=== PATIENT | male | born 1980 | race Caucasian/White ===

== ENCOUNTER 2016-09-10 12:44 | Emergency (ER) | payer SELFPAY ==
[~2016-09-10] VITALS: Ht 170.2 cm; Wt 100.0 kg
[2016-09-10 12:46] VITALS: BP 160/83; PULSE 82; TEMP 98.4; O2SAT 97
--- NOTE | 2016-09-10 12:53 | PD ---
Physical Exam Date Seen by Provider: September 10, 2016 Time Seen by Provider: 12:51 Narrative 36 YOHM C/O R HAND INJURY LAST NIGHT. CLOSED IN A HOUSE DOOR . PAIN MILD.. NO NUMBNESS VVS WAITING FOR BED PLACEMENT Data Data Last Documented VS Vital Signs Date Time Temp Pulse Resp B/P Pulse Ox O2 Delivery O2 Flow Rate FiO2 09/10/16 12:46 98.4 82 160/83 97 MDM Medical Record Reviewed: Yes Supervised Visit with JESUS: No Scripts No Active Prescriptions or Reported Meds Zhou Magaña September 10, 2016 12:53
--- NOTE | 2016-09-10 13:00 | PD ---
HPI . right hand pain Chief Complaint: Injury Time Seen by Provider: 13:00 Travel History International Travel<30 days: No Contact w/Intl Traveler<30days: No Traveled to known affect area: No History of Present Illness HPI 36-year-old male here with complaints of right hand pain status post slamming a door on his hand. Upon inspection mechanism of injury does not match findings and I discuss with the patient. He then admits to punching a door yesterday. Patient says he was intoxicated and punched a door because it would not open. His significant other is present and is stating that the door was locked, therefore would not open. He is now complaining of pain in the fourth and fifth metacarpals of the right hand. He has decreased strength secondary pain. Pain is mild to moderate. He denies any numbness or tingling. PFSH Past Medical History Cardiovascular Problems: Yes (A-fib) Social History Alcohol Use: No Tobacco Use: Yes (04/26 PPD) Substance Use: No Allergies-Medications (Allergen,Severity, Reaction): Coded Allergies: No Known Allergies (Unverified , 09/10/16) Reported Meds & Prescriptions Reported Meds & Active Scripts Active [place] (Hydrocodone-Acetaminophen) 5-325 mg Tab 1 Tab PO Q6H PRN Reported Zoloft (Sertraline HCl) 50 Mg Tab 50 Mg PO DAILY Review of Systems General / Constitutional: No: Fever Eyes: No: Visual changes HENT: No: Headaches Cardiovascular: No: Chest Pain or Discomfort Respiratory: No: Shortness of Breath Gastrointestinal: No: Abdominal Pain Genitourinary: No: Dysuria Musculoskeletal: Positive: Pain (right hand pain ) Skin: No Rash Neurologic: No: Weakness Psychiatric: No: Depression Endocrine: No: Polydipsia Hematologic/Lymphatic: No: Easy Bruising Physical Exam Narrative GENERAL: AAO x 3, no acute distress, Well-nourished, well-developed patient. SKIN: Warm and dry. No visible rashes or bruising. Positive right hand edema on the fourth and fifth metacarpals. HEAD: Normocephalic and atraumatic. EYES: No scleral icterus. No injection or drainage. EOM intact, PERRLA ENT: No nasal drainage noted. Mucous membranes pink. Airway patent. NECK: Supple, trachea midline. No JVD. CARDIOVASCULAR: Regular rate and rhythm without murmurs, gallops, or rubs. RESPIRATORY: Breath sounds equal bilaterally. No accessory muscle use. No rhonchi or rales. GASTROINTESTINAL: Abdomen soft, non-tender, nondistended. EXTREMITIES: No cyanosis or edema. Tenderness over the fourth and fifth metacarpals of the right hand, edema present. 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 Decreased range of motion secondary pain. BACK: Nontender without obvious deformity. No CVA tenderness. PSYCH: AAO x 3, normal affect. Data Data Last Documented VS Vital Signs Date Time Temp Pulse Resp B/P Pulse Ox O2 Delivery O2 Flow Rate FiO2 09/10/16 13:01 Room Air 09/10/16 12:46 98.4 82 160/83 97 Orders Hand, Complete ([id number]) (09/10/16 12:53) Ice/Cold Pack (09/10/16 12:53) Splinting (09/10/16 ) Fiberglass Splint Forearm Adul (09/10/16 ) MDM Medical Decision Making Medical Screen Exam Complete: Yes Emergency Medical Condition: Yes Medical Record Reviewed: Yes Differential Diagnosis Boxer's fracture, less likely bone contusion, less likely hand abrasion Narrative Course 36 yr old male s/p punching a door here with c/o right hand pain. This is his dominant hand. Xray ordered and reveals: distal 5th metacarpal fracture with minimal angulation ulnar gutter splint discussed with patient that he will need to see hand specialist especially since this is his dominant hand he does not have insurance, but his significant other is currently in the exam room adding him to her insurance policy I explained that not following up could lead to loss of function and this is his dominant hand. I have provided him with some [employer]. Patient verbalized understanding of instructions, questions were answered, and thanked me for their care. I advised them if their condition worsens, please return to the nearest emergency room for further care. Diagnosis Primary Impression: Closed fracture of 5th metacarpal Qualified Code: S62.306A - Closed nondisplaced fracture of fifth metacarpal bone of right hand, unspecified portion of metacarpal, initial encounter Referrals: Hand Surgeon Patient Instructions: General Instructions Additional Instructions: Rest the affected area as much as possible. Keep in the splint. If any swelling develops, please go to the nearest emergency department. Elevate this area. Use ibuprofen as needed for pain and inflammation. Please return to emergency department if your symptoms return or worsen. Follow up with your primary care provider. Take medications as prescribed. YOU WILL NEED TO SEE A HAND SPECIALIST WE DISCUSSED, PLEASE DO SO WITHIN ONE WEEK Med/Other Pt SpecificInfo: Prescription(s) given Scripts Hydrocodone-Acetaminophen ([place])5-325 mg Tab1 Tab PO Q6H PRN (PAIN) #10 TAB Ref 0 Prov:Duke Spear MD 09/10/16 Disposition: 01 DISCHARGE HOME Condition: Stable Sydnie Rasmussen September 10, 2016 13:00
[2016-09-10] MEDS ORDERED: ZOLO50TA PO (13:05)
--- NOTE | 2016-09-10 13:37 | RADRPT ---
EXAM DATE/TIME: 09/10/2016 13:16 [facility] COMPARISON: No previous studies available for comparison. INDICATIONS : Right hand pain, mostly in 5th digit area, shoved front door yesterday. MEDICAL HISTORY : None. SURGICAL HISTORY : None. ENCOUNTER: Initial ACUITY: 1 day PAIN SCORE: 10/10 LOCATION: Right hand FINDINGS: There is fracture head of the fifth metacarpal with minimal angulation. No other fractures are appre ciated. CONCLUSION: Fracture distal fifth metacarpal minimal angulation. Vladislav Barrera MD FACR on September 10, 2016 at 13:34 Board Certified Radiologist. This report was verified electronically.
[2016-09-10] MEDS ORDERED: NORC5TAB PO (13:46)
== END 2016-09-10 14:39 | disposition home or self-care (01) ==
LOC: NEPK 12:44
DX: S62.306A Unspecified fracture of fifth metacarpal bone, right hand, initial encounter for closed fracture (principal); I48.91 Unspecified atrial fibrillation; F17.210 Nicotine dependence, cigarettes, uncomplicated; W22.8XXA Striking against or struck by other objects, initial encounter; Y92.009 Unspecified place in unspecified non-institutional (private) residence as the place of occurrence of the external cause
CPT/HCPCS: 29515; 73130

== ENCOUNTER 2016-09-22 12:56 | Emergency (ER) | payer OTHER ==
[~2016-09-22] VITALS: Ht 172.7 cm; Wt 96.0 kg
[~2016-09-22 12:56] MED LIST: NORC5TAB PO; ZOLO50TA PO
[2016-09-22 12:58] VITALS: BP 187/93; PULSE 104; RESP 24; TEMP 97.8; O2SAT 96
--- NOTE | 2016-09-22 13:13 | PD ---
HPI Chief Complaint: Laceration/Skin Injury Time Seen by Provider: 13:13 Travel History International Travel<30 days: No Contact w/Intl Traveler<30days: No Traveled to known affect area: No History of Present Illness HPI 36-year-old male presents to the emergency department for evaluation of left hand thumb laceration. Patient states that he was at work cutting sheet metal when the blade accidentally jerked the piece of metal and cut his left thumb on the metal. He complains of pain at the site and states he thinks there is a piece of metal in the laceration. He denies any numbness or tingling, weakness , decreased range of motion. Unsure of last tetanus vaccination. Patient is also requesting his splint be replaced on his right hand, he was here in our ED about 2 weeks ago for a right hand fracture. No other complaints. PFSH Past Medical History Atrial Fibrillation: Yes Depression: Yes Cardiovascular Problems: Yes (A-FIB) Diminished Hearing: No Psychiatric: Yes (PTSD) Immunizations Current: No Social History Alcohol Use: Yes (OCC) Tobacco Use: Yes (1/2 PPD) Substance Use: No (DENIES) Allergies-Medications (Allergen,Severity, Reaction): Coded Allergies: No Known Allergies (Unverified , 09/17/16) Reported Meds & Prescriptions Reported Meds & Active Scripts Active [place] (Hydrocodone-Acetaminophen) 5-325 mg Tab 1 Tab PO Q6H PRN Reported Zoloft (Sertraline HCl) 50 Mg Tab 50 Mg PO DAILY Review of Systems Except as stated in HPI: all other systems reviewed are Neg Physical Exam Narrative GENERAL: Well-nourished and well-developed pleasant female patient in no acute distress who is nontoxic appearing. SKIN: Warm and dry. 1 cm laceration to volar proximal aspect of the thumb. There does appear to be a small metallic foreign body within the laceration. No tendon injury. HEAD: Normocephalic and atraumatic. EYES: No injection, drainage, or hyphema noted. PERRLA. EOMI. ENT: No nasal drainage noted. Oropharynx is clear. NECK: Supple and the trachea is midline. CARDIOVASCULAR: Regular rate and rhythm. RESPIRATORY: Breath sounds are equal bilaterally with no accessory muscle use, wheezing, rhonchi, or crackles. EXTREMITY: Left hand laceration as above. Full range of motion in all joints. No joint swelling/injury. Normal opposition of thumb. Distal extremity neurovascularly intact with intact two point discrimination. NEUROLOGICAL: Awake, alert, and oriented. Normal speech and gait. Cranial nerves are grossly intact. Data Data Last Documented VS Vital Signs Date Time Temp Pulse Resp B/P Pulse Ox O2 Delivery O2 Flow Rate FiO2 09/22/16 12:58 97.8 104 24 187/93 96 Room Air Orders Tetanus/Diphtheria Tox Adult (Tetanus/Di (09/22/16 13:15) Bupivacaine Pf 0.5% Inj (Marcaine Pf 0.5 (09/22/16 13:15) Lidocaine 1% Inj (50 Ml) (Xylocaine 1% I (09/22/16 13:15) Hand, Complete ([id number]) (09/22/16 13:12) Splint Or Brace Apply/Monitor (09/22/16 13:16) Fiberglass Splint Forearm Adul (09/22/16 ) [facility] Medical Decision Making Medical Screen Exam Complete: Yes Emergency Medical Condition: Yes Differential Diagnosis Foreign body retention versus laceration versus deep versus avulsion Narrative Course 36-year-old male presents to the emergency department for evaluation of laceration to left hand thumb with possible retained foreign body. Patient is afebrile, vital signs are stable. No evidence of tendon or neurovascular injury. X-ray imaging of the left hand does not identify any foreign body. Laceration repairs performed, see procedure narrative. Patient was seen here 2 weeks ago for a closed fracture of the right fifth distal metacarpal and was placed in an ulnar gutter. He states that he did follow-up with Dr. Encarnacion last week and had a new splint placed however this is now dirty and he is requesting that we replace the splint. Discussed proper wound care techniques with the patient. Advised to follow up with his hand specialist or his primary care. Patient verbalizes understanding and agreement with treatment plan. Procedures Procedure Narrative LACERATION LOCATION: Base of the left hand thumb, volar aspect LENGTH: 1.5 cm NUMBER OF STITCHES/CAREN: 4 sutures REPAIR: The area of the laceration was prepped with Betadine and sterilely draped. The laceration was infiltrated with 1% lidocaine. There were 3 very small metallic foreign bodies removed from the laceration. The wound was copiously irrigated and explored without evidence of tendon injury or neurovascular injury. The wound was closed using 4. 0 Ethilon. This was a single layer repair. Antibiotic ointment and a sterile dressing was applied. The patient was advised to keep the dressing clean and dry. Patient tolerated the procedure well. Diagnosis Primary Impression: Laceration of left thumb Qualified Code: S61.012A - Laceration of left thumb, initial encounter Additional Impression: Closed fracture of 5th metacarpal Qualified Code: S62.306D - Closed nondisplaced fracture of fifth metacarpal bone of right hand with routine healing, unspecified portion of metacarpal, subsequent encounter Referrals: Hand Surgeon Patient Instructions: Acute Wound Care (ED), Finger Laceration (ED), General Instructions Additional Instructions: Wash wounds gently with soap and water. Apply topical antibiotic ointment twice daily. Have sutures removed in 7 days. Take medication as prescribed with food and a full glass of water. Follow-up with your hand specialist. Return to the ED for any acute worsening of symptoms. Med/Other Pt SpecificInfo: Prescription(s) given Scripts Cephalexin (Keflex)500 Mg [id number] Mg PO Q8H 7 Days Ref 0 Prov:Bala Corbett MD 09/22/16 Disposition: 01 DISCHARGE HOME Condition: Stable Consuelo Dominique September 22, 2016 13:13
[2016-09-22] MEDS ORDERED: LIDOCAINE HCL 1% 50 ML VIAL INFIL ONE (13:15)
[2016-09-22] MEDS ORDERED: TETANUS/DIPHTHERIA TOXOID ADULT 0.5 ML VIAL IM ONE (13:15)
[2016-09-22] MEDS ORDERED: BUPIVACAINE HCL PF 0.5% 10 ML VIAL INFIL ONE (13:15)
--- NOTE | 2016-09-22 13:41 | RADRPT ---
EXAM DATE/TIME: 09/22/2016 13:32 [facility] COMPARISON: No previous studies available for comparison. INDICATIONS : Left hand foreign body; cut with metal at work. MEDICAL HISTORY : None. SURGICAL HISTORY : None. ENCOUNTER: Initial ACUITY: 1 day PAIN SCORE: 7/10 LOCATION: Left 1st digit; hand. FINDINGS: Three view examination of the left hand demonstrates no soft tissue swelling, dislocation, or fractur e. The carpal bones appear intact. The interphalangeal and metacarpophalangeal joints are intact. Bony mineralization is normal. CONCLUSION: Laceration without radiopaque foreign body. Vladislav Barrera MD FACR on September 22, 2016 at 13:39 Board Certified Radiologist. This report was verified electronically.
[2016-09-22] MEDS ORDERED: CEPH-460 PO (14:45)
== END 2016-09-22 15:12 | disposition home or self-care (01) ==
LOC: NEPD 12:56
DX: S61.012A Laceration without foreign body of left thumb without damage to nail, initial encounter (principal); I48.91 Unspecified atrial fibrillation; F17.210 Nicotine dependence, cigarettes, uncomplicated; Z23 Encounter for immunization; W45.8XXA Other foreign body or object entering through skin, initial encounter; Y93.89 Activity, other specified; Y92.9 Unspecified place or not applicable; Y99.0 Civilian activity done for income or pay
CPT/HCPCS: 12001; 73130; 90471; 90714